=== PATIENT | male | born 1960 | race Caucasian/White ===

== ENCOUNTER 2019-08-15 13:57 | Inpatient (IN) | payer BC, SELFPAY ==
[2019-08-15] VITALS (16 sets, daily range): BP systolic 108–156; BP diastolic 61–92; PULSE 70–98; RESP 10–25; TEMP 36.6; O2SAT 92–100; BMI 35.6
--- NOTE | 2019-08-15 14:01 | XACV_ITS ---
Exam Room: [facility] Ht: 178 cm Wt: 122 kg BSA: 2.51 m2 Gender: Male : 1960 Any Known Allergies: Other Exam Priority: Routine Indication(s): - Acute inferior GA Procedure(s): Procedure Description: Diagnostic procedure Procedure Description: PCI procedure Procedure Description: Drug Eluting Coronary Stent Procedure Description: PTCA Procedure Description: Coronary Angiography Diagnostic Cath Status: Emergency Diagnostic Findings LM has 0% stenosis. LAD has 0% stenosis. CX has 0% stenosis. Proximal Right Coronary Artery: Severe 100% stenosis, ALISTAIR: 0 flow. Proximal Right Coronary Artery: Severe 100% stenosis, ALISTAIR: 0 flow. mRCA: Severe 100% stenosis, ALISTAIR: 0 flow. Coronary angiography shows right dominance. PCI Status: Emergency PCI Indication: Immediate PCI for STEMI Interventional Findings After passing wire in true lumen of RCA multiple balloon angioplasty of mid to proximal RCA was performed. In order to pass the stent there appeared to be ostial tight stenosis which was dilated with balloon angioplasty. Two overlapping large 4.0 x 38 mm Tony stents were placed in mid to proximal segment of RCA deployed at high GARY. Both stents were postdilated with noncompliant balloon. Haziness in the mid of both stents was noted most likely dissection flap despite of multiple balloon angioplasties it continue hindering the flow and not going away therefore decided to trap it with a third stent. Excellent angiographic result with ALISTAIR-3 flow was restored. Please for detail see the inventory. All the stents were postdilated with noncompliant balloon. Proximal Right Coronary Artery: 100% stenosis treated with Drug Eluting Stent. 0% residual stenosis, ALISTAIR: 3 flow. Proximal Right Coronary Artery: 100% stenosis treated with Drug Eluting Stent. 0% residual stenosis, ALISTAIR: 3 flow. mRCA: 100% stenosis treated with Drug Eluting Stent. 0% residual stenosis, ALISTAIR: 3 flow. Conclusions Indication for PCI/angiogram: ST elevation GA#1 Normal left main#2 Normal LAD#3 Normal left circumflex#4 Significant ostial more than 90% highly calcified RCA disease complicated by proximal to distal RCA dissection with 0 ALISTAIR- flow and staining observed most likely it is a spiral dissection therefore we refrain from injecting. It is the culprit vessel. There is severe coronary artery disease with one vessel disease. Proximal Right Coronary Artery was treated with Drug Eluting Stent. Proximal Right Coronary Artery was treated with Drug Eluting Stent. mRCA was treated with Drug Eluting Stent. Recommendations 1-Return to inpatient for close monitoring and routine cath care2-Risk factor modification for secondary prevention3-Statin with LDL goal <70 mg/dl, aspirin 81 mg [id number] was pre-loaded with 180mg of Brillinta. Continue Brillinta 90mg p.o. twice daily for at least one year. We will assess at the end of one year again to continue it further or not5-Continue optimal medical management6-Follow up with Dr. Omer in four weeks and with your PCP in one week. Interventional RX Recommendation: PCI w/o planned CABG Diagnostic RX Recommendation: PCI w/o planned CABG Pressures Phase:Rest AO : 114 mmHg / 74 mmHg ( 93 mmHg ) @ 9:22:00 AM 96 mmHg / 75 mmHg ( 86 mmHg ) @ 9:25:00 AM 83 mmHg / 61 mmHg ( 72 mmHg ) @ 9:39:00 AM 85 mmHg / 63 mmHg ( 74 mmHg ) @ 9:51:00 AM 83 mmHg / 61 mmHg ( 72 mmHg ) @ 10:08:00 AM Clinical Evaluation EBL: 5mL-10mL Procedural Details Procedure Consent Obtained. Pre-Procedure Time Out. Identified patient by full name and date of as verbalized by the patient/guarantor. Does the consent match the physician's order: Yes. Accurate & Complete Informed Consent: Yes. If H&P is completed, is and addenduem needed: N/A Emergent; If yes, is the addendum complete: No. Inpatient/Outpatient History & Physical on Chart: N/A Emergent. Relevant Radiology Images available: N/A Emergent. The risks, benefits, and alternatives of sedation and/or procedure were discussed by physician. The patient agrees to continue. Procedure started. [facility] Clinical Fraility Score: 3: Managing Well. 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 Chest Pain Symptom Assessment: Typical Angina Symptoms. Cardiovascular Instability: Yes, if yes, Persistant Ischemic Symptoms. Correct patient, site and procedure confirmed by cath team. Current diagnosis: STEMI. PERRLA. 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 Lungs clear x 5 lobes. IV Site on Arrival: 20 gauge in the right anticubital. IV Site on Arrival: 18 gauge in the left hand. IV Fluids: 0.9% NaCl at KVO. 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 Pre Procedural Pulses: bilateral radial was 3+. Oxygen started at 2liters/min via nasal canula. right groin was prepped with chloroprep then draped in the usual sterile fashion. right radial was prepped with chloroprep then draped in the usual sterile fashion. Baseline sample Acquired. HR: 78 BPM. Physician notified. Patient's family unavailable. Patient came off of [facility] by [facility]. Upon questioning him, he stated that he was with his girlfriend and didn't know if anyone would be coming here to [facility]. Equipment: 6F - Radial. Physician arrived. Physician scrubbed in. Immediate Pre-Procedure Time Out. Correct Patient: Yes; Correct Procedure: Yes; Correct Site: Yes; Correct Patient Position: Yes; Correct Supplies: Yes; Dried Flammable Prep: Yes; Blood Products Available: N/A;. Lidocaine 1% infiltrated to the right radial. Arterial access obtained. PCI Indication: STEMI. 6 dutch JR 4 SH guide catheter was inserted over the wire. Cineography of the RCA performed. [place] guidewire was advanced through the guide catheter to lesion in the prox RCA. AP pads were placed on the patient in the ED. Inflation number : 1 A AB TREK 2.50X15 RX BALLOON was prepped and advanced across the Prox RCA , then inflated to 12 GARY for 0:08 seconds. Inflation number: 2 The AB TREK 2.50X15 RX BALLOON was reinflated across the Prox RCA, to 14 GARY for 0:11 seconds. results checked. Current Diagnosis : STEMI. Wire out. Guide catheter out. 6 dutch CLS 3.5 guide catheter was inserted over the wire. Cineography of the LCA performed. 6 dutch JR SH 4 guide catheter was inserted over the wire. Inflation Number : 3 A MDT R TONY 4.0X38 PETE -Lot Number# [id number] was prepped and advanced across the Prox RCA. The stent was deployed at 12 GARY for 0:37 seconds. Exp. 03/26/2021. Stent balloon out over wire. Inflation Number : 4 A MDT R TONY 4.0X38 PETE -Lot Number# [id number] was prepped and advanced across the Prox RCA. The stent was deployed at 12 GARY for 0:30 seconds. Exp. 02/23/2021. NC Euphora 4.5 x 20 in, unable to cross, removed. NC Euphora 4.0 x 12 in, unable to cross, removed. Runthrough guidewire was advanced through the guide catheter to lesion in the prox RCA. Guideliner in over the [place] Guidewire. PCI Indication : Immediate PCI for STEMI. Wires out. Guideliner out. 6 dutch AL 0.75 guide catheter was inserted over the wire. The patients DaughterGalina, PH: , updated via telephone. 250 mL NS bolus completed per Dr Omer. Inflation number : 5 A MDT NC EUPHORA RX [id number] BALLOON was prepped and advanced across the Prox RCA , then inflated to 12 GARY for 0:21 seconds. Inflation number: 6 The MDT NC EUPHORA RX 4.98S70NC BALLOON was reinflated across the Prox RCA, to 14 GARY for 0:16 seconds. Inflation number: 7 The MDT NC EUPHORA RX 4.49D75SK BALLOON was reinflated across the Prox RCA, to 14 GARY for 0:09 seconds. Inflation number: 8 The MDT NC EUPH[place]A RX 4.65Q76YV BALLOON was reinflated across the Prox RCA, to 18 GARY for 0:18 seconds. Inflation number: 9 The MDT NC EUPH[place]A RX [id number] BALLOON was reinflated across the Prox RCA, to 18 GARY for 0:11 seconds. Inflation number: 10 The MDT NC EUPHORA RX 4.05S12MA BALLOON was reinflated across the Prox RCA, to 10 GARY for 0:18 seconds. Inflation number: 11 The MDT NC EUPHORA RX 4.08C45HB BALLOON was reinflated across the Prox RCA, to 6 GARY for 0:11 seconds. Inflation number: 12 The MDT NC EUPHORA RX 4.70Z55UG BALLOON was reinflated across the Prox RCA, to 6 GARY for 0:21 seconds. Balloon out. ACT drawn. Results 230 seconds. Therapeutic limits - pre-heparin administration 90-150 seconds and monitoring heparin during a vascular procedure >250 seconds. Inflation number : 13 A MDT NC EUPHORA RX 4.95D52XK BALLOON was prepped and advanced across the Prox RCA , then inflated to 12 GARY for 0:14 seconds. Inflation number: 14 The MDT NC EUPHORA RX 4.46G58QN BALLOON was reinflated across the Prox RCA, to 12 GARY for 0:13 seconds. Inflation number: 15 The MDT NC EUPHORA RX 4.30S59WP BALLOON was reinflated across the Prox RCA, to 6 GARY for 0:20 seconds. Cardiac Cath Pack. ACIST Manifold Kit Model BT 2000. Heparinized Saline (2 units/mL), 1000 mL bag. Inventory added: [place] Guidewire, Runthrough Guidewire, Endofl ator, Guideliner. Inflation number: 16 The MDT NC EUPHORA RX 4.64G72BD BALLOON was reinflated across the Prox RCA, to 14 GARY for 0:21 seconds. Inflation number: 17 The MDT NC EUPHORA RX 4.84Q18EZ BALLOON was reinflated across the Prox RCA, to 10 GARY for 0:11 seconds. Balloon pulled back into the guide cath. Inflation Number : 18 A MDT R TONY 4.0X22 PETE -Lot Number# [id number] was prepped and advanced across the Prox RCA. The stent was deployed at 12 GARY for 0:24 seconds. Exp. 11/24/2020. Physician scrubbed out. The patient states that he wishes to call his Daughter, Galina, after he gets settled in the ICU instead of Dr. Omer calling her. TR band placed. Hemostasis obtained. A TR Band was successful obtaining hemostatsis at the Radial artery insertion site. Post Procedure: Pulses reassessed and unchanged. PERRLA. 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 No VTE prophylaxis required. Complications: none. Estimated blood loss: 5mL-10mL. Post-op diagnosis: STEMI/Spiral dissection of the RCA successfully stented x 3. Medication's Wasted: Lidocaine 1% = 18 mL. Medication's Wasted: Nitro = 49.8 mg. Patient transferred by wheelchair to ICU. Total IV fluids: 500 mL. Procedure completed. Vital chart was stopped. Site: Radial artery Sheath Size: 6 Fr Hemostasis Method: TR Band Hemostasis Success: Successful Procedure Medications Start: 2:19 PM Stop: 2:19 PM Medication: Fentanyl Amount: 50 mcg Route: I.V. Start: 2:19 PM Stop: 2:19 PM Medication: Versed Amount: 1 mg Route: I.V. Start: 2:21 PM Stop: 2:21 PM Medication: Heparin Amount: 6000 units Start: 2:22 PM Stop: 2:22 PM Medication: Versed Amount: 1 mg Route: I.V. Start: 2:22 PM Stop: 2:22 PM Medication: Fentanyl Amount: 50 mcg Route: I.V. Start: 2:31 PM Stop: 2:31 PM Medication: Aggrastat 12.5 mg/250 mL Amount: 62.5 ml Route: I.V. bolus Start: 2:33 PM Stop: 2:33 PM Medication: Aggrastat 12.5 mg/250 mL Amount: ml/hr Route: I.V. drip Start: 2:42 PM Stop: 2:42 PM Medication: Heparin Amount: 2000 units Route: I.V. Start: 3:03 PM Stop: 3:03 PM Medication: Versed Amount: 1 mg Route: I.V. Start: 3:16 PM Stop: 3:16 PM Medication: Heparin Amount: 2000 units Route: I.V. Start: 3:18 PM Stop: 3:18 PM Medication: Fentanyl Amount: 25 mcg Route: I.V. Start: 3:21 PM Stop: 3:21 PM Medication: Fentanyl Amount: 25 mcg Route: I.V. I, the attending physician, have reviewed and verified all procedure medications. Yes, all medications given per verbal order History/Risk Factors Hypertension: Yes Dyslipidemia: No Peripheral Arterial Disease (PAD): No Myocardial Infarction (GA): No Obesity: Yes Renal Disease: No Tobacco Use: Current/Recent(w/in 1 year) Prior Interventions PCI: No CABG: No Valve Surgery: No Report Signatures Finalized by:Rabia Omer MD on 08/30/2019 5:35:14 PM
[2019-08-15] MEDS: clopidogrel 300 mg Tablet 600 MG PO (14:06)
[2019-08-15] MEDS: nitroglycerin 0.4 mg sublingual Tablet SUBLINGUAL (14:06)
[2019-08-15] MEDS: heparin 5,000 unit/mL INJ 1 mL 4000 UNIT IVP (14:06)
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
--- NOTE | 2019-08-15 16:02 | P.HP_ITS ---
Providers/Chief Complaint Admitting Physician: Rabia Omer MD Chief Complaint: Chest pain History of Present Illness Carlos Lorenzo is a 58 year old male past medical history significant for hypertension tobacco abuse obesity and sedentary lifestyle was here at the [facility] when he started having chest pain 911 was called he was brought in to the ER found to have wall ST elevation LA. He was taken to the Electronic Installer immediately. Right coronary artery was noted to have proximal to distal RCA dissection which was the cause of acute occlusion. It appeared to me that dissection started at the ostium which is highly calcified and severely stenotic segment. It was very hard for the guide to engage. We were able to cross with a wire to overlapping stent 4.0?38 Enrico was used to see letter section from proximal to mid RCA. Despite of 2 overlapping stent mid segment continues to appear hazy multiple balloon angioplasty using 4.0 and 4.5 mm noncompliant balloon was used but we were not able to tap that dissection which was finally entrapped with a third stent placed in the middle of the 2 overlapping stents. Excellent angiographic result with ALISTAIR-3 flow was achieved. Patient chest pain resolved and ST elevation started resolving. His blood pressure also improved. Later he was transferred back to ICU in a stable condition. Medications/Allergies Home Medications Medication Instructions Recorded Confirmed Last Taken Type duloxetine [Cymbalta] 20 mg PO DAILY 08/15/19 08/15/19 Unknown History lisinopril-hydrochlorothiazide 1 tab PO DAILY 08/15/19 08/15/19 Unknown History tamsulosin [Flomax] 0.4 mg PO DAILY 08/15/19 08/15/19 Unknown History Allergies Allergy/AdvReac Type Severity Reaction Status Date / Time Penicillins Allergy Unknown Verified 08/15/19 13:59 rabies vaccine, ramu cell Allergy Unknown Verified 08/15/19 14:08 PFSH Acute PFSH: Medical History (Updated 08/16/19 @ 15:50 by Rabia Omer MD) Hypertension Surgical History (Updated 08/16/19 @ 15:50 by Rabia Omer MD) History of PTCA Social History Smoking and tobacco status: current every day smoker Vitals/I&O/Wt Last Vital Signs Pulse 70 08/15/19 13:59 Resp 17 08/15/19 13:59 BP 133/77 08/15/19 13:59 Pulse Ox 100 08/15/19 13:59 Weight last 48 hrs Weight 270 lb Physical Exam Narrative: EXAM NARRATIVE: GENERAL: Patient is alert, awake and oriented x3. NECK: No jugular vein distension. HEENT: No cyanosis. No icterus. No pallor. HEART: Regular S1 and S2. No murmur, rub or gallop. LUNGS: Clear to auscultate bilaterally. ABDOMEN: Soft, nontender and nondistended. Positive bowel sounds. No guarding, rebound or tenderness. CENTRAL NERVOUS SYSTEM: Grossly nonfocal. EXTREMITIES: Lower extremities without edema Data : 08/16/19 04:27 08/16/19 04:27 A&P Assessment and plan (1) ST elevation LA (STEMI): Status post 3 drug-eluting stent to proximal to mid RCA for atherosclerotic induced dissection leading to ST elevation LA. I will switch patient to Brilinta for better statistics in ST elevation LA. Over next 24 hours we will add beta-margarita and YASMIN inhibitor. Will ask for echocardiogram to assess LV function. Status: Acute (2) Hypertension: Currently patient is hypotensive we will continue IV fluid due to right side infarction Status: Acute Attestations Medical Necessity Statement*: Patient require continuation hospitalization for ST elevation LA care. I am expecting his stay to cross more than 2 midnights. Coding Level of Care Code New Pt Acute Machine Clerical Verifier for Ramos Lucia Patient Type New Medical Decision Making Moderate Complexity Diagnoses ST elevation LA (STEMI) I21.3 Hypertension I10 Comment I am expecting his stay to cross more than 2 midnights
--- NOTE | 2019-08-15 17:28 | PC.NURSE ---
PATIENT CAME FROM [facility] WITH NS RUNNING AND AGGRISTAT INFUSING AT A RATE OF 22.5ML/HR. I WAS INSTRUCTED BY DR VARNER TO DC AGGRISTAT AT 1630 WHICH WAS DONE AT THE CORRECT TIME. UNSURE WHY THE MEDICATION WAS NOT SCANNED INTO MAY.
--- NOTE | 2019-08-15 18:14 | ECG_ITS ---
Measurements Intervals [place] Rate: 71 P: 53 NH: 137 QRS: 61 QRSD: 98 T: 99 QT: 425 QTc: 463 SINUS RHYTHM WITH SINUS ARRHYTHMIA MARKED ST ELEVATION, CONSIDER INFERIOR INJURY ACUTE [place] No previous ECG available for comparison Electronically Signed On 08-16-2019 8:05:52 CDT by Dina Montalvo M.D. [id number]
--- NOTE | 2019-08-15 19:26 | ECG_ITS ---
Measurements Intervals [place] Rate: 75 P: 46 WV: 121 QRS: -12 QRSD: 94 T: 44 QT: 388 QTc: 436 SINUS RHYTHM WITH OCCASIONAL SUPRAVENTRICULAR PREMATURE COMPLEXES INFERIOR MYOCARDIAL INFARCTION [40+ ms Q WAVE AND/OR ST/T ABNORMALITY IN II/aVF], OF INDETERMINATE AGE WITH POSTERIOR EXTENSION INTERPRETATION BASED ON A DEFAULT AGE OF 40 YEARS No previous ECG available for comparison Electronically Signed On 08-16-2019 18:20:18 CDT by Rabia Omer M.D. [id number]
[2019-08-15] MEDS: trazodone 100 mg Tablet PO (21:06)
[2019-08-15] MEDS: pantoprazole DR 40 mg Tablet PO (21:06)
[2019-08-15] MEDS: atorvastatin 40 mg Tablet PO (21:06)
[2019-08-16] VITALS (20 sets, daily range): BP systolic 105–156; BP diastolic 56–86; PULSE 70–96; RESP 9–31; TEMP 36.6–37.1; O2SAT 90–98
--- NOTE | 2019-08-16 03:26 | PC.NURSE ---
2356 Patient had 28 beat run of Vtach. Asymptomatic
[2019-08-16 04:54] LABS: Basophils % 0.3 %; Eosinophils # 0.1 10^3/uL (0.0-0.8); Eosinophils % 0.6 %; Hemoglobin 14.4 g/dL (11.7-16.6); Lymphocytes # 2.5 10^3/uL (0.8-4.8); Lymphocytes % 19.7 %; Mean Corpuscular HGB Conc 33.5 g/dL (30.0-36.0); Mean Corpuscular Hemoglobin 31.4 pg (28.0-34.0); Mean Corpuscular Volume 93.9 fL (80-94); Mean Platelet Volume 10.3 fL (7.4-10.4); Monocytes # 1.2 10^3/uL (0.2-0.9); Monocytes % 9.2 %; Neutrophils # 8.8 10^3/uL (1.8-7.7); Neutrophils % 69.8 %; Nucleated Red Blood Cells % 0 %; Platelet Count 235 10^3/cmm (130-400); Red Blood Count 4.58 10^6/uL (4.1-5.3); White Blood Count 12.6 10^3/uL (4.0-10.0)
[2019-08-16 05:13] LABS: Anion Gap 18.9 (5-19); Blood Urea Nitrogen 11 mg/dL (8-23); Calcium 9.2 mg/dL (8.5-10.5); Carbon Dioxide 20 mmol/L (22-29); Chloride 103 mmol/L (98-107); Glomerular Filtration Rate 86.1 mL/min (90-130); Glucose 93 mg/dL (65-115); Osmolality Calculated 282 mOsm/kg (285-295); Potassium 3.9 mmol/L (3.5-5.1); Sodium 138 mmol/L (136-145)
[2019-08-16 07:49] LABS: Troponin T (5th) Once 4443 ng/L (0-15)
[2019-08-16] MEDS: ticagrelor 90 mg Tablet 180 MG PO (09:01)
[2019-08-16] MEDS: enoxaparin 40 mg/0.4 mL Syringe SUBCUT (09:01)
[2019-08-16] MEDS: aspirin 81 mg EC Tablet PO (09:01)
[2019-08-16] MEDS: pantoprazole DR 40 mg Tablet PO ×2 (09:01→17:15)
--- NOTE | 2019-08-16 15:54 | PM.PN ---
Subjective Subjective: Interval history: Overnight patient did fine denies any more chest pain however he is little short of breath could be due to Brilinta possible. We will also echocardiogram Medications: Reviewed: Yes Vitals/I&O/Wt Last Vital Signs Temp 98.8 F 08/16/19 08:00 Pulse 89 08/16/19 15:00 Resp 10 L 08/16/19 15:00 BP 128/82 08/16/19 13:00 Pulse Ox 96 08/16/19 15:00 08/16/19 08/16/19 08/16/19 06:59 14:59 22:59 Intake Total 960 / 960 750 / 750 Output Total 2000 / 2500 625 / 625 Balance -1040 / -1540 125 / 125 Weight last 48 hrs Weight 270 lb Physical Exam Narrative: EXAM NARRATIVE: GENERAL: Patient is alert, awake and oriented x3. NECK: No jugular vein distension. HEENT: No cyanosis. No icterus. No pallor. HEART: Regular S1 and S2. No murmur, rub or gallop. LUNGS: Clear to auscultate bilaterally. ABDOMEN: Soft, nontender and nondistended. Positive bowel sounds. No guarding, rebound or tenderness. CENTRAL NERVOUS SYSTEM: Grossly nonfocal. EXTREMITIES: Lower extremities without edema Data : 08/16/19 04:27 08/16/19 04:27 A&P Assessment and plan (1) ST elevation [place] (STEMI): Status post drug-eluting stent to proximal to mid RCA. Patient is doing fine from a cardiovascular perspective. I will add beta-margarita and YASMIN inhibitor. Continue Brilinta. Continue statin. Echocardiogram is pending. Status: Acute (2) Hypertension: Well-controlled. Status: Acute Attestations Medical Necessity Statement*: Require continuation hospitalization for above defined care. 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
[2019-08-16] MEDS: metoprolol succinate ER (24 HR) 25 mg Tablet 12.5 MG PO (17:15)
[2019-08-16] MEDS: atorvastatin 40 mg Tablet PO (20:46)
[2019-08-16] MEDS: trazodone 100 mg Tablet PO (20:46)
--- NOTE | 2019-08-16 20:58 | USCV_ITS ---
Marko Harrison Age: 58 Gender: M : 1960 Exam Date: 08/16/2019 09:34 Ordering Phys: Rabia Omer MD ([email or web address]) Technologist: Jennifer Collazo Exam Location: [facility] [place] Indication: STEMI BP: 154 / 75 HR: 92 Rhythm: Sinus Technical Quality: Adequate MEASUREMENTS (Male / Female) Normal Values 2D ECHO LV Diastolic Diameter PLAX 4.2 cm 4.2 - 5.9 / 3.9 - 5.3 cm LV Systolic Diameter PLAX 3.0 cm LV Chamber Size 4.4 cm IVS Diastolic Thickness 1.2 cm 0.6 - 1.0 / 0.6 - 0.9 cm IVS Systolic Thickness 2.0 cm LVPW Diastolic Thickness 1.0 cm 0.6 - 1.0 / 0.6 - 0.9 cm LVPW Systolic Thickness 1.3 cm RV Chamber Size 3.3 cm LVOT Diameter 2.1 cm LV Ejection Fraction 2D Teich 53.3 % LV Ejection Fraction MOD 2C 59.8 % LV Ejection Fraction 2C AL 60.3 % LA Diameter 4.2 cm LA Width 3.0 cm LA Height 5.2 cm RA Width 2.5 cm RA Height 4.6 cm Aorta at Sinotubular Diameter 3.4 cm M-MODE LV Diastolic Diameter MM 5.4 cm 4.2 - 5.9 / 3.9 - 5.3 cm LV Systolic Diameter MM 4.0 cm LV Ejection Fraction MM Teich 50.8 % IVS Diastolic Thickness MM 1.1 cm 0.6 - 1.0 / 0.6 - 0.9 cm IVS Systolic Thickness MM 1.5 cm LVPW Diastolic Thickness MM 1.4 cm 0.6 - 1.0 / 0.6 - 0.9 cm LVPW Systolic Thickness MM 1.9 cm Aortic Annulus Diameter 3.9 cm LA Ao Ratio MM 1.1 DOPPLER AV Peak Velocity 120.0 cm/s LVOT Peak Velocity 86.0 cm/s AV Area Cont Eq vti 2.4 cm squared AV Area Cont Eq pk 2.6 cm squared MV Area PHT 5.5 cm squared Mitral E to A Ratio 1.3 MV E' Velocity 12.0 cm/s Mitral E to MV E' Ratio 8.2 Mitral E to LV E' Lateral Ratio 7.1 Mitral E to LV E' Septal Ratio 9.9 TR Peak Velocity 197.0 cm/s TR Peak Gradient 15.5 mmHg TV Peak E Velocity 59.0 cm/s Right Atrial Pressure 8.0 mmHg Pulmonary Artery Systolic Pressu 23.5 mmHg PV Peak Velocity 56.0 cm/s RV Acceleration Time 0.1 s RV Ejection Time 0.3 s RV AcT/ET 0.3 FINDINGS Left Ventricle Normal left ventricular cavity size. Mildly reduced left ventricular systolic function. There is inferior wall hypokinesis.left ventricular ejection fraction is estimated at 50 %. Grade II/IV diastolic dysfunction, moderately elevated filling pressures. Right Ventricle The right ventricle is normal in size and function. RVSP could not be calculated due to incomplete tricuspid regurgitation velocity profile. Right Atrium The right atrium is normal in size. Left Atrium The left atrium is normal in size. Mitral Valve Structurally normal mitral valve without significant stenosis or prolapse. There is no mitral regurgitation. Aortic Valve Moderate aortic valve calcification. No aortic valve stenosis. Tricuspid Valve Structurally normal tricuspid valve without significant stenosis or regurgitation. Pulmonic Valve Structurally normal pulmonic valve without significant stenosis. There is no pulmonic regurgitation. Pericardium Normal pericardium without effusion. Aorta Normal ascending aorta dimension. CONCLUSIONS 1-Normal left ventricular cavity size. Mildly reduced left ventricular systolic function. There is inferior wall hypokinesis.left ventricular ejection fraction is estimated at 50 %. Grade II/IV diastolic dysfunction, moderately elevated filling pressures. 2-The right ventricle is normal in size and function. RVSP could not be calculated due to incomplete tricuspid regurgitation velocity profile. 3-There is no pericardial effusion. 4-No significant valve abnormalities. 5-Right atrial pressure is around 5 mm of mercury. 6-There are no prior echocardiogram studies to compare. Rabia Omer MD (Electronically Signed) Final Date: 16 August 2019 17:46 S
[2019-08-17] VITALS: PULSE 85
[2019-08-17 04:00] VITALS: BP 114/68; PULSE 85; RESP 22; TEMP 36.6; O2SAT 96
[2019-08-17 08:15] VITALS: BP 115/61; PULSE 89; O2SAT 96
[2019-08-17 08:46] VITALS: BP 115/61; PULSE 86
[2019-08-17] MEDS: pantoprazole DR 40 mg Tablet PO (08:49)
[2019-08-17] MEDS: metoprolol succinate ER (24 HR) 25 mg Tablet 12.5 MG PO (08:49)
[2019-08-17] MEDS: aspirin 81 mg EC Tablet PO (08:51)
[2019-08-17] MEDS: enoxaparin 40 mg/0.4 mL Syringe SUBCUT (08:51)
[2019-08-17] MEDS: lisinopril 2.5 mg Tablet PO (08:51)
[2019-08-17 13:17] VITALS: BP 114/68; PULSE 76; TEMP 36.6; O2SAT 95
--- NOTE | 2019-08-17 17:28 | P.DS_ITS ---
Discharge Providers Date of Admission: 08/15/19 14:28 Date of Discharge: August 17, 2019 Attending Provider at Admission: Rabia Omer MD Attending Provider at Discharge: Rabia Omer MD Diagnoses at Discharge Discharge Diagnosis (1) ST elevation [place] (STEMI): Status: Acute (2) Hypertension: Status: Acute Reason for Visit Reason for Visit: Chest pain Hospital Course Hospital Course: Carlos Lorenzo is a 58 year old male past medical history significant for hypertension tobacco abuse obesity and sedentary lifestyle was admitted after taken to [facility] for ST elevation [place]. Right coronary artery was noted to have proximal to distal dissection which was the cause of acute occlusion. It appeared that dissection started at the ostium which was highly calcified and severely stenotic segment. It was very hard for the guide to engage. We were able to cross with a wire and treated mid to proximal dissection segment with two overlapping stents 4.0?38 [place] . Despite of 2 overlapping stents mid segment continues to appear hazy multiple balloon angio plasty using 4.0 and 4.5 mm noncompliant balloons but we were not able to tap that dissection which was finally entrapped with a third stent placed in the middle of the 2 overlapping stents. Excellent angiographic result with ALISTAIR-3 flow was achieved. Patient chest pain and ST elevation was resolved. His blood pressure also improved. Later he was transferred back to ICU in a stable condition. Over next 2 days patients medicine were optimized he was switched to Brilinta for long stents. Echocardiogram was performed which showed mildly depressed LV function 50% with inferior wall hypokinesis otherwise no significant valvular abnormality. He is walking around without any difficulty he denies any chest pain shortness of breath PND orthopnea. He is being discharged home. Patient has been advised to follow-up with primary care physician and establish care with cardiology over next few days. Patient has been given medicines with 3 refills for 3 to 4 months. Physical Exam Narrative: EXAM NARRATIVE: GENERAL: Patient is alert, awake and oriented x3. NECK: No jugular vein distension. HEENT: No cyanosis. No icterus. No pallor. HEART: Regular S1 and S2. No murmur, rub or gallop. LUNGS: Clear to auscultate bilaterally. ABDOMEN: Soft, nontender and nondistended. Positive bowel sounds. No guarding, rebound or tenderness. CENTRAL NERVOUS SYSTEM: Grossly nonfocal. 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 Stat Exams 08/15/19 14:01 Taken Vitals: Last Vital Signs Temp 97.8 F 08/17/19 13:17 Pulse 76 08/17/19 13:17 Resp 22 H 08/17/19 04:00 BP 114/68 08/17/19 13:17 Pulse Ox 95 08/17/19 13:17 Discharge Plan Discharge Patient Disposition: Home, Self-Care Prescriptions: New atorvastatin 40 mg Tablet 40 mg PO BEDTIME Qty: 90 RF: 4 pantoprazole 40 mg Tablet,Delayed Release (Dr/Ec) 40 mg PO BEDTIME Qty: 30 RF: 3 metoprolol succinate 25 mg Tablet Extended Release 24 Hr 12.5 mg PO DAILY Qty: 90 RF: 4 ticagrelor 90 mg tablet 90 mg PO BID Qty: 180 RF: 4 Adult Aspirin Regimen 81 mg tablet,delayed release (DR/EC) 81 mg PO DAILY Qty: 90 RF: 4 Continued lisinopril-hydrochlorothiazide 20-12.5 mg Tablet 1 tab PO DAILY RF: 0 Cymbalta 20 mg Capsule,Delayed Release(Dr/Ec) 20 mg PO DAILY RF: 0 Flomax 0.4 mg Capsule 0.4 mg PO DAILY RF: 0 Discharge Orders: Discharge Order (Routine); Ordered 08/17/19 Ordered By: Rabia Omer Referrals: CARDIOLOGY [Provider Group] - 7-10 days (Please, make an follow-up appointment for cardiology in 7 days. If unable obtain appointment close to home. Please, call [facility] for appointment. ) Patient Instructions: Metoprolol (By mouth), Aspirin (By mouth), Atorvastatin (By mouth), Pantoprazole (By mouth), Ticagrelor (By mouth), Myocardial Infarction (DC), Post Angiogram Home Care Instructions Discharge Date/Time: 08/17/19 13:15 Discharge Attestations Time Spent in Discharge Care*: greater than 30 min Specific Discharge Activities: Specific discharge activities: educating patient Time Spent in Smoking Cessation: Time spent discussing smoking cessation with patient: 3 to 10 minutes Quality Metrics Clinical Quality Measures During this hospital stay, did patient experience: AMI Clinical Trial Participant: No Contraindication to aspirin (AMI): Aspirin given Contraindication to statin: Statin prescribed Contraindication to PCI: PCI performed Contraindication to Fibrinolytics: Alternative treatment initiated Coding Level of Care Code New 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
--- NOTE | 2019-08-18 15:48 | PC.RESP ---
Smoking Cessation information and a schedule of classes to patient.
== END 2019-08-17 13:15 | disposition home or self-care (01) | DRG 247 ==
LOC: ER 14:08 → CCL 14:09 → ICU 14:29 → CSU 08-16 19:00
PROVIDERS: Admitting Provider Internal Medicine Cardiovascular Disease; Emergency Provider Family Medicine; Visit Provider Internal Medicine Cardiovascular Disease
PROC: 027136Z Dilation of Coronary Artery, Two Arteries with Three Drug-eluting Intraluminal Devices, Percutaneous Approach (ICD-10-PCS; principal; 2019-08-15 13:30)
PROC: 027136Z Dilation of Coronary Artery, Two Arteries with Three Drug-eluting Intraluminal Devices, Percutaneous Approach (ICD-10-PCS; 2019-08-15 13:30)
DX: I21.3 ST elevation (STEMI) myocardial infarction of unspecified site (principal); I10 Essential (primary) hypertension; E66.9 Obesity, unspecified; Z68.35 Body mass index [BMI] 35.0-35.9, adult; Z95.5 Presence of coronary angioplasty implant and graft; F17.210 Nicotine dependence, cigarettes, uncomplicated; I25.10 Atherosclerotic heart disease of native coronary artery without angina pectoris
CPT/HCPCS: 12002; 12345; 13121; 13122; 36415; 80048; 84484; 85025; 85347; 93005; 93306; 93454; 96372; 96375; 99281; C1725; C1769; C1874; C1887; C1894; C9606; J1644; J1650; J2001; J2250; J3010; J3246; J3490; J7030; Q9967